=== PATIENT | female | born 1995 | race African-American/Black ===

== ENCOUNTER 2023-03-11 23:58 | Inpatient (IN) | payer BC ==
[2023-03-12] MEDS ORDERED: hydrALAZINE 20 MG/ML VIAL SLOW IVP PRN ×3 (00:39→20:05)
[2023-03-12] MEDS ORDERED: Lidocaine 1% (PF) 30 ML VIAL SC PRN (00:39)
[2023-03-12] MEDS ORDERED: Tranexamic Acid 1,000 MG/10 ML VIAL IVP PRN (00:39)
[2023-03-12] MEDS ORDERED: Methylergonovine 0.2 MG/ML VIAL IM PRN (00:39)
[2023-03-12] MEDS ORDERED: Ibuprofen 800 MG TAB PO PRN (00:39)
[2023-03-12] MEDS ORDERED: Ondansetron PF 4 MG/2 ML Vial IVP PRN ×2 (00:39→13:07)
[2023-03-12] MEDS ORDERED: Diphenoxylate HCl/Atropine Tablet PO PRN (00:39)
[2023-03-12] MEDS ORDERED: Promethazine HCl 25 MG/ML VIAL IM PRN ×2 (00:39→13:07)
[2023-03-12] MEDS ORDERED: Misoprostol 200 MCG TAB PR PRN (00:39)
[2023-03-12] MEDS ORDERED: Acetaminophen 500 MG TAB PO PRN (00:39)
[2023-03-12 00:43] VITALS: BMI 31.2
[2023-03-12] MEDS ORDERED: Lactated Ringer's 1,000 ML IV SCH (00:45)
[2023-03-12] MEDS ORDERED: NS w/ Oxytocin 30 units 500 ML IV SCH ×3 (00:45→05:15)
[2023-03-12 02:02] LABS: Hemoglobin 13.6 g/dL (12.0-15.5); Mean Corpuscular Hemoglobin 31.4 pg (27.0-33.0); Mean Corpuscular Volume 92.4 fl (81.6-98.3); Mean Platelet Volume 11.1 fl (7.4-10.4); Platelet Count 350 10x3/uL (150-450); Red Blood Cell (RBC) Count 4.33 10x6/uL (3.90-5.03); White Blood Cell (WBC) Count 11.9 10x3/uL (3.5-10.5)
[2023-03-12 02:31] LABS: HBSAg Index 0.19 S/CO (0-0.99); Hep B Surf Ag - L&D Non-Reactive S/CO (NonReactive); Syphilis Antibody Nonreactive (Nonreactive); Syphilis Antibody Index 0.04 S/CO (<1.00 Non-Reactive)
[2023-03-12] MEDS ORDERED: fentaNYL/Ropivacaine Epidural 100 ML ONE (12:13)
[2023-03-12] MEDS ORDERED: Acetaminophen 325 MG TAB PO PRN (13:07)
[2023-03-12] MEDS ORDERED: ePHEDrine Sulfate 50 MG/10 ML VIAL SLOW IVP PRN (13:07)
[2023-03-12] MEDS ORDERED: Naloxone HCl 0.4 mg/ml Vial IVP PRN ×2 (13:07)
[2023-03-12] MEDS ORDERED: diphenhydrAMINE 50 MG/ML VIAL IVP PRN (13:07)
[2023-03-12] MEDS ORDERED: Lactated Ringer's 500 ML IV PRN (13:07)
[2023-03-12] MEDS ORDERED: Moisturizing Cream (Eucerin) 113 GM JAR TOP PRN (13:07)
[2023-03-12] MEDS ORDERED: fentaNYL 2 mcg/Ropivacaine 0.2% Epidural 100 ML CADD EPIDURAL SCH (13:15)
[2023-03-12] MEDS ORDERED: Communication Order-Pharmacy FS SCH (13:15)
[2023-03-12] MEDS ORDERED: Bupivacaine HCl 0.5%/Epinephrine 1:200,000/PF 30 ml Vial ONE (16:00)
[2023-03-12] MEDS ORDERED: ePHEDrine Sulfate 50 MG/10 ML VIAL ONE (16:00)
[2023-03-12] MEDS ORDERED: Bisacodyl 10 MG SUPP PR PRN (20:05)
[2023-03-12] MEDS ORDERED: Lanolin Ointment 7 GM TUBE TOP PRN (20:05)
[2023-03-12] MEDS ORDERED: Milk Of Magnesia 30 ML UDCUP PO PRN (20:05)
[2023-03-12] MEDS ORDERED: HYDROcodone/Acetaminophen 5/325 mg Tablet PO PRN (20:05)
[2023-03-12] MEDS ORDERED: Boostrix 0.5 ML (Tdap) VIAL (>/=7 yrs of age) IM ONE (20:05)
[2023-03-12] MEDS: Docusate 100 MG CAP PO SCH (22:54)
[2023-03-12] MEDS: Ibuprofen 800 MG TAB PO SCH (22:54)
[2023-03-13] MEDS: Ibuprofen 800 MG TAB PO SCH ×3 (05:53→21:09)
[2023-03-13] MEDS: Ferrous Sulfate 325 MG TAB PO SCH (07:05)
[2023-03-13] MEDS: Docusate 100 MG CAP PO SCH ×2 (07:38→21:09)
[2023-03-13] MEDS: Prenatal Vitamin 1 TAB PO SCH (07:38)
[2023-03-14] MEDS: Ibuprofen 800 MG TAB PO SCH (05:07)
[2023-03-14] MEDS: Ferrous Sulfate 325 MG TAB PO SCH (07:03)
[2023-03-14 07:36] VITALS: BP 114/57; TEMP 98.2
[2023-03-14] MEDS: Prenatal Vitamin 1 TAB PO SCH (08:02)
[2023-03-14] MEDS: Docusate 100 MG CAP PO SCH (08:02)
== END 2023-03-14 13:45 | disposition home or self-care (01) | DRG 807 ==
LOC: CSHLD/OP 23:58 → CSHLD 03-12 00:40 → CSHPP 03-12 21:58
PROVIDERS: ADMIT Student in an Organized Health Care Education/Training Program; ATTEND Student in an Organized Health Care Education/Training Program
PROC: 10E0XZZ Delivery of Products of Conception, External Approach (ICD-10-PCS; principal; 2023-03-12)
PROC: 0HQ9XZZ Repair Perineum Skin, External Approach (ICD-10-PCS; 2023-03-12)
DX: O42.02 Full-term premature rupture of membranes, onset of labor within 24 hours of rupture (principal); Z37.0 Single live birth; Z3A.38 38 weeks gestation of pregnancy; J45.909 Unspecified asthma, uncomplicated; O99.52 Diseases of the respiratory system complicating childbirth; O99.284 Endocrine, nutritional and metabolic diseases complicating childbirth; E28.2 Polycystic ovarian syndrome; O70.0 First degree perineal laceration during delivery
CPT/HCPCS: 36415; 51702; 85027; 86780; 86850; 86900; 86901; 87340; 99285